=== PATIENT | male | born 1945 | race Two or more races ===

== ENCOUNTER 2018-11-04 19:24 | Emergency (ER) | payer OTHER ==
[~2018-11-04] VITALS: Ht 175.3 cm; Wt 102.1 kg
[~2018-11-04 19:24] MED LIST: AMLODIPINE5 M1 PO; FLA500 PO; HYDRALAZINE HYD50 MG PO; HYDROCHLOROTH12.5 M2 PO; LAC PO; LEVAQUIN750 MG PO; MEVACOR40 MG PO; NOR5 PO; OMEPRAZOLE DR20 M1 PO; XARELTO20 M1 PO
[2018-11-04 19:58] VITALS: Ht 175.3 cm; Wt 102.1 kg
[2018-11-04 20:50] LABS: BASOPHIL % 0.4 % (0-2); PLATELET COUNT 163 x10^3mcL (130-400)
[2018-11-04 21:06] LABS: CALCIUM 9.2 mg/dL (8.5-10.1); CARBON DIOXIDE 30.7 mmol/L (21-32); CHLORIDE SERUM 101 mmol/L (98-107); CREATININE SERUM 1.2 mg/dL (0.7-1.3); GLUCOSE SERUM 165 mg/dL (74-106); POTASSIUM SERUM 3.4 mmol/L (3.5-5.1); SODIUM SERUM 139 mmol/L (136-145)
[2018-11-04 21:27] LABS: ALKALINE PHOSPHATASE 56 U/L (46-116); ALT/SGPT 21 U/L (16-63); AST/SGOT 19 U/L (15-37); BILIRUBIN TOTAL 0.74 mg/dL (0.20-1.00); TOTAL PROTEIN, SERUM 7.7 g/dL (6.4-8.2)
[2018-11-04 21:28] LABS: ALBUMIN 3.2 g/dL (3.4-5.0)
[2018-11-04 22:27] VITALS: BP 158/82
== END 2018-11-04 22:39 | disposition home or self-care (01) ==
LOC: ED 19:24
PROVIDERS: Emergency Medicine
DX: J40 Bronchitis, not specified as acute or chronic (principal); I10 Essential (primary) hypertension; K21.9 Gastro-esophageal reflux disease without esophagitis; E78.00 Pure hypercholesterolemia, unspecified; Z88.8 Allergy status to other drugs, medicaments and biological substances; Z98.890 Other specified postprocedural states
CPT/HCPCS: 36415; 83880; 87804; J7512; J7620; Q0092

== ENCOUNTER 2019-04-08 18:19 | Emergency (ER) | payer OTHER ==
[~2019-04-08] VITALS: Ht 188 cm; Wt 103.0 kg
[2019-04-08 19:25] VITALS: BP 141/82; Ht 188 cm; Wt 103.0 kg
== END 2019-04-08 22:38 | disposition home or self-care (01) ==
LOC: ED 18:19
DX: T15.02XA Foreign body in cornea, left eye, initial encounter (principal); S05.02XA Injury of conjunctiva and corneal abrasion without foreign body, left eye, initial encounter; I10 Essential (primary) hypertension; H10.32 Unspecified acute conjunctivitis, left eye; E11.9 Type 2 diabetes mellitus without complications; E78.00 Pure hypercholesterolemia, unspecified; K21.9 Gastro-esophageal reflux disease without esophagitis; G56.00 Carpal tunnel syndrome, unspecified upper limb; N40.0 Benign prostatic hyperplasia without lower urinary tract symptoms; X58.XXXA Exposure to other specified factors, initial encounter; Y93.89 Activity, other specified; Y92.89 Other specified places as the place of occurrence of the external cause; Y99.8 Other external cause status

== ENCOUNTER 2019-12-06 20:55 | Observation (INO) | payer OTHER ==
[~2019-12-06] VITALS: Ht 170.2 cm; Wt 89.9 kg
[~2019-12-06 20:55] MED LIST changes: +AMLODIPINE BESYL5 M2; -AMLODIPINE5 M1 PO
[2019-12-06 21:12] VITALS: Ht 170.2 cm; Wt 89.9 kg
[2019-12-06 21:38] LABS: BASOPHIL % 0.6 % (0-2); PLATELET COUNT 174 x10^3mcL (130-400); RED CELL DISTRIBUTION WIDTH 14.9 % (11.5-14.5)
[2019-12-06 22:03] LABS: ALBUMIN 3.5 g/dL (3.4-5.0); ALKALINE PHOSPHATASE 64 U/L (46-116); ALT/SGPT 22 U/L (16-63); AST/SGOT 11 U/L (15-37); BILIRUBIN TOTAL 1.31 mg/dL (0.20-1.00); CALCIUM 9.5 mg/dL (8.5-10.1); CHLORIDE SERUM 98 mmol/L (98-107); CREATININE SERUM 1.6 mg/dL (0.7-1.3); POTASSIUM SERUM 5.1 mmol/L (3.5-5.1); SODIUM SERUM 133 mmol/L (136-145)
[2019-12-06 22:06] LABS: GLUCOSE SERUM 593 mg/dL (74-106)
[2019-12-07 05:09] VITALS: BP 148/81
[2019-12-07 06:47] LABS: CALCIUM 8.2 mg/dL (8.5-10.1); CARBON DIOXIDE 27.7 mmol/L (21-32); CHLORIDE SERUM 102 mmol/L (98-107); CREATININE SERUM 1.1 mg/dL (0.7-1.3); GLUCOSE SERUM 336 mg/dL (74-106); POTASSIUM SERUM 3.7 mmol/L (3.5-5.1); SODIUM SERUM 138 mmol/L (136-145)
[2019-12-07 08:45] VITALS: BP 145/71
[2019-12-07] MEDS ORDERED: FORTAMET500 M1 PO (10:39)
[2019-12-07] MEDS ORDERED: LANTUS SOLOS100 U/M1 SC (10:41)
[2019-12-07] MEDS ORDERED: NOVOLOG FLEX100 U/M1 SC (10:42)
[2019-12-07 11:05] VITALS: BP 145/71
[2019-12-07 12:41] VITALS: BP 145/73
== END 2019-12-07 15:50 | disposition home or self-care (01) ==
LOC: ED 20:55 → MU 12-07 00:56
PROVIDERS: Emergency Medicine; ADMIT Internal Medicine Pulmonary Disease
DX: E11.65 Type 2 diabetes mellitus with hyperglycemia (principal); I10 Essential (primary) hypertension; E78.5 Hyperlipidemia, unspecified; N40.0 Benign prostatic hyperplasia without lower urinary tract symptoms; E66.9 Obesity, unspecified; Z23 Encounter for immunization
CPT/HCPCS: 82962; 83880; 90658; G0378; J1815; J1940; J7030